=== PATIENT | female | born 1950 | race Caucasian/White ===

== ENCOUNTER 2021-12-13 13:22 | Emergency (ER) | payer OTHER ==
[~2021-12-13] VITALS: Ht 154.9 cm; Wt 61.2 kg
--- NOTE | 2021-12-13 13:30 | NUR ---
Placed in room 05 . Placed on color television console monitor, blood pressure machine and pulse oximeter. To gown for exam. Side rails up.
--- NOTE | 2021-12-13 13:32 | NUR ---
Pt brought by ambulance, A&Ox3 with periods of confusion and agitation , pt presents to ER with dizziness x 4 days, no N/V, states she has Hx of Vertigo for few months, skin pink and warm, cap refill <3, VSS, respirations even and unlabored, will cont to monitor.
[2021-12-13 13:33] VITALS: BP_SYST 154
--- NOTE | 2021-12-13 13:40 | NUR ---
Dr Reynoso evaluating patient at bedside
[2021-12-13] MEDS ORDERED: OLANZapine IntraMuscular 10 MG VIAL (FOR I.M. INJECTION ONLY) IM ONE (14:00)
[2021-12-13] MEDS ORDERED: MECLIZINE HCL 25 MG TABLET (ANITVERT) PO ONE (14:00)
--- NOTE | 2021-12-13 14:03 | NUR ---
Pt off the unit for CT
--- NOTE | 2021-12-13 14:12 | NUR ---
Pt back from CT.
[2021-12-13 14:14] LABS: BASOPHILS % (AUTO) 0.6 % (0.0-2.0); EOSINOPHILS # (AUTO) 0.5 K/uL (0.0-0.4); EOSINOPHILS % (AUTO) 7.7 % (0.0-4.0); HEMATOCRIT 36.8 % (36-48); HEMOGLOBIN 11.9 g/dL (12.0-16.0); LYMPHOCYTES # (AUTO) 1.4 K/uL (1.0-5.5); LYMPHOCYTES % (AUTO) 22.2 % (20.5-51.5); MEAN CORPUSCULAR HEMOGLOBIN 29 pg (27-31); MEAN CORPUSCULAR HGB CONC 32 % (32-36); MEAN CORPUSCULAR VOLUME 88 fL (79.0-98.0); MONOCYTES # (AUTO) 0.6 K/uL (0.0-1.0); MONOCYTES % (AUTO) 9.4 % (1.7-9.3); NEUTROPHILS # (AUTO) 3.7 K/uL (1.8-7.7); NEUTROPHILS % (AUTO) 60.1 % (40.0-70.0); PLATELET COUNT (AUTO) 210 K/uL (130-430); RED BLOOD CELL COUNT(AUTO) 4.17 MIL/uL (4.2-6.2); RED CELL DISTRIBUTION WIDTH 13.9 % (9.0-15.0); WHITE BLOOD COUNT (AUTO) 6.2 K/uL (4.8-10.8)
[2021-12-13] MEDS ORDERED: NACL 0.9% 500 ML IV ONE (14:15)
--- NOTE | 2021-12-13 14:24 | NUR ---
Report given to Isis VARGAS
[2021-12-13 14:29] LABS: ANION GAP 8 (5-15); CALCIUM 7.6 mg/dL (8.4-11.0); CHLORIDE 105 mmol/L (98-107); CREATININE 0.75 mg/dL (0.55-1.30); GLUCOSE 98 mg/dL (70-99); POTASSIUM 3.7 mmol/L (3.5-5.1); SODIUM SERUM 139 mmol/L (136-145); UREA NITROGEN, BLOOD 18 mg/dL (8-21)
[2021-12-13 14:30] LABS: GFR AFRICAN AMERICAN 98 mL/min (>90); PROTHROMBIN TIME 10.3 SECS (9.5-12.5)
[2021-12-13 14:34] LABS: ALANINE AMINOTRANSFERASE 17 U/L (12-78); ALBUMIN 3.4 g/dL (3.4-4.8); ASPARTATE AMINOTRANSFERASE 21 U/L (10-37); TOTAL BILIRUBIN < 0.1 mg/dL (0.0-1.0)
[2021-12-13 17:13] VITALS: BP_SYST 154
--- NOTE | 2021-12-13 17:14 | NUR ---
Patient given written and verbal discharge instructions and verbalizes understanding. ER MD discussed with patient the results and treatment provided. Patient in stable condition. ID arm band removed. Rx of Ativan given. Patient educated on pain management and to follow up with PMD. Pain Scale 2/10. Opportunity for questions provided and answered. Medication side effect fact sheet provided.
== END 2021-12-13 17:13 | disposition home or self-care (01) ==
LOC: SED 13:22
DX: R42 Dizziness and giddiness (principal); F32.9 Major depressive disorder, single episode, unspecified
CPT/HCPCS: 36415; 70450; 71045; 76376; 80048; 80053; 84484; 85025; 85610; 85730; 86886; 86900; 86901; 93005; 96360; 99285; J3490; J7030; J8597